=== PATIENT | female | born 1985 | race Hispanic/Latino ===

== ENCOUNTER 2017-06-04 16:33 | Inpatient (IN) | payer MEDICAID ==
--- NOTE | 2017-06-04 17:56 | OBHP ---
Datetime: 06/04/2017 17:45 Admit Comment, IP Provider: The patient presents to labor and delivery for administration of steroid s. Patient without complaints reports good movement no vaginal bleeding or leakage of fluid. Steroids to be administered as per M.D. Patient discharged with labor precautions Follow-up with in 1 week Pelvic Type - PN: Adequate Extremities - PN: Normal Abdomen - PN: Normal Back - PN: Normal Breast - PN: Not Done Lungs - PN: Normal Heart - PN: Normal Thyroid - PN: Normal Neurologic - PN: Normal HEENT - PN: Normal General - PN: Normal EGA AdmitDate IP: 39.6 Vital Signs Provider: Reviewed IP Chief Complaint: Other Genitourinary Exam: Normal DTRs - PN: Normal
[2017-06-04 23:09] VITALS: BMI 25.1
--- NOTE | 2017-06-05 02:05 | OBADHP ---
Datetime: 06/05/2017 01:00 EGA AdmitDate IP: 40.0 Datetime: 06/04/2017 23:00 Admit Comment, IP Provider: CHIEF COMPLAINT: CTX HISTORY OF PRESENT ILLNESS: 31 yo, female, , IUP @ 39.6 weeks by lmp. While being observed in the ED, she has progressed to active labor; from 1 cm to 3 cm within 2 itzel rs. 90% effacement and 0 station; PAST OB HX: N/A CARE and labs: GBS: neg ; ABO-Rh: O+ ; Ab: neg; HIV: neg; RPR: neg; GC/C: neg; Rubella: IM; HbsAg: NEG; PPD: ???; TDap: ??? PAST MEDICAL HISTORY: none PAST SURGICAL HISTORY: none PAST SOCIAL HISTORY: Denies: Smoking/Alcohol/Drugs PAST FAMILY HISTORY: inSignificant ALLERGIES: NKDA PHYSICAL EXAM Vital signs 107/66 82 General: pleasant, in no acute distress HEENT: normocephalic, PERRLA; AAOx3 Heart: no murmurs, regular rate and rhythm, S1, S2 normal. Lungs: clear to auscultation bilaterally, no wheezing Abdomen: gravid CVA: negative LOWER EXTREMITIES: negative for edema PELVIC: External Genitalia: negative for lesion Vagina: negative for VG Cervix: Dilation: 3/Efface ment: 90/Station:0 MONITOR Baseline Heart Rate: 150 Accelerations: 15X15 Deceleration: none Contractions every 3-5 min Category I ASSESSMENT: Intrauterine at GA 39.6 weeks. active phase of labor Ambulating PLAN: 31 yo GP IUP at 39.6 wks admitted for normal progression of labor Pt desires as natural as possible for delivery; does not want fluids (only if dehydrated or life s aving) Declines antibiotics; Pt on wireless, bluetooth monitor. Admit to Labor and Delivery, CBC/Type and Screen/RPR, Intravenous access, Monitoring, Monito r Labor progress, Discussion about her condition including labor, delivery, pain management, and post care. Adequate pelvis vertex presentation. olamide PGY1 The patient was seen with the resident I agree with note. Patient to be admitted adequate pelvis v ertex presentation estimated weight 7 pounds anticipate normal vaginal delivery Pelvic Type - PN: Adequate Extremities - PN: Normal Abdomen - PN: Normal Back - PN: Normal Breast - PN: Normal Lungs - PN: Normal Heart - PN: Normal Thyroid - PN: Normal Neurologic - PN: Normal HEENT - PN: Normal General - PN: Normal FHR - Baseline A Provider: 145 Vital Signs Provider: Reviewed; Within Normal Limits IP Chief Complaint: Uterine contractions; Suspected ruptured membranes NICHD Variability Prov Fetus A: Moderate 6-25bpm NICHD Accel Fetus A IP Provider: 15X15 FHR Category Provider Fetus A: Category I NICHD Decel Fetus A IP Provider: None Dilatation, Provider: 3 Effacement, Provider: 90 Station, Provider: 0 Genitourinary Exam: Normal DTRs - PN: Normal IP Adm Impression: Term, intrauterine IP Admit Plan: Admit to unit
--- NOTE | 2017-06-05 02:08 | OBHP ---
Datetime: 06/05/2017 01:00 EGA AdmitDate IP: 40.0 Datetime: 06/04/2017 23:00 IP Adm Impression: Term, intrauterine IP Admit Plan: Admit to unit Admit Comment, IP Provider: CHIEF COMPLAINT: CTX HISTORY OF PRESENT ILLNESS: 31 yo, female, , IUP @ 39.6 weeks by lmp. While being observed in the ED, she has progressed to active labor; from 1 cm to 3 cm within 2 itzel rs. 90% effacement and 0 station; PAST OB HX: N/A CARE and labs: GBS: neg ; ABO-Rh: O+ ; Ab: neg; HIV: neg; RPR: neg; GC/C: neg; Rubella: IM; HbsAg: NEG; PPD: ???; TDap: ??? PAST MEDICAL HISTORY: none PAST SURGICAL HISTORY: none PAST SOCIAL HISTORY: Denies: Smoking/Alcohol/Drugs PAST FAMILY HISTORY: inSignificant ALLERGIES: NKDA PHYSICAL EXAM Vital signs 107/66 82 General: pleasant, in no acute distress HEENT: normocephalic, PERRLA; AAOx3 Heart: no murmurs, regular rate and rhythm, S1, S2 normal. Lungs: clear to auscultation bilaterally, no wheezing Abdomen: gravid CVA: negative LOWER EXTREMITIES: negative for edema PELVIC: External Genitalia: negative for lesion Vagina: negative for VG Cervix: Dilation: 3/Efface ment: 90/Station:0 MONITOR Baseline Heart Rate: 150 Accelerations: 15X15 Deceleration: none Contractions every 3-5 min Category I ASSESSMENT: Intrauterine at GA 39.6 weeks. active phase of labor Ambulating PLAN: 31 yo GP IUP at 39.6 wks admitted for normal progression of labor Pt desires as natural as possible for delivery; does not want fluids (only if dehydrated or life s aving) Declines antibiotics; Pt on wireless, bluetooth monitor. Admit to Labor and Delivery, CBC/Type and Screen/RPR, Intravenous access, Monitoring, Monito r Labor progress, Discussion about her condition including labor, delivery, pain management, and post care. Adequate pelvis vertex presentation. olamide PGY1 The patient was seen with the resident I agree with note. Patient to be admitted adequate pelvis v ertex presentation estimated weight 7 pounds anticipate normal vaginal delivery Pelvic Type - PN: Adequate Extremities - PN: Normal Abdomen - PN: Normal Back - PN: Normal Breast - PN: Normal Lungs - PN: Normal Heart - PN: Normal Thyroid - PN: Normal Neurologic - PN: Normal HEENT - PN: Normal General - PN: Normal FHR - Baseline A Provider: 145 Vital Signs Provider: Reviewed; Within Normal Limits IP Indication for Induction: Not Applicable IP Chief Complaint: Uterine contractions; Suspected ruptured membranes NICHD Variability Prov Fetus A: Moderate 6-25bpm NICHD Accel Fetus A IP Provider: 15X15 FHR Category Provider Fetus A: Category I NICHD Decel Fetus A IP Provider: None Dilatation, Provider: 3 Effacement, Provider: 90 Station, Provider: 0 Genitourinary Exam: Normal DTRs - PN: Normal
[2017-06-05 02:13] LABS: BASO % 0.2 % (0.0-2.0); EOS % 0.1 % (0.0-4.0); HEMATOCRIT 35.1 % (34.0-47.0); LYMPH # 1.3 K/uL (1.0-4.3); LYMPH % 9.5 % (20.0-40.0); MEAN CORPUSCULAR HEMOGLOBIN 29.1 pg (27.0-31.0); MEAN CORPUSCULAR HGB CONC 32.3 g/dL (33.0-37.0); MONO # 0.7 K/uL (0.0-0.8); NEUT # 12.1 K/uL (1.8-7.0); NEUT % 85.2 % (50.0-75.0); PLATELET COUNT 224 K/uL (130-400); RED CELL DISTRIBUTION WIDTH 13.6 % (11.5-14.5); WHITE BLOOD COUNT 14.2 K/uL (4.8-10.8)
[2017-06-05] MEDS: Lactated Ringer's 1,000 ML IV SCH ×4 (05:05→16:45)
[2017-06-05 05:24] VITALS: PULSE 79; RESP 18; O2SAT 100
[2017-06-05 05:34] LABS: BASOPHIL 1 % (0-2); NEUTROPHIL 84 % (42-75); TOTAL CELLS COUNTED 100
[2017-06-05] MEDS ORDERED: Fentanyl/Bupivacaine HCl 250 ML EPI ONE (06:04)
[2017-06-05] MEDS ORDERED: Lactated Ringer's 1,000 ML IV ONE (15:45)
[2017-06-05] MEDS ORDERED: Lidocaine 1% Inj (20ml) ONE (22:39)
[2017-06-05] MEDS ORDERED: Oxytocin 30 units/LR 500ML 30 U/500 ML BAG IV ONE (23:04)
[2017-06-06 07:39] LABS: HEMATOCRIT 31.6 % (34.0-47.0); MEAN CELL VOLUME 89.9 fl (81.0-99.0); MEAN CORPUSCULAR HEMOGLOBIN 29.6 pg (27.0-31.0); RED CELL DISTRIBUTION WIDTH 13.8 % (11.5-14.5); WHITE BLOOD COUNT 19.5 K/uL (4.8-10.8)
--- NOTE | 2017-06-06 08:30 | OBDS ---
DELIVERY PERSONNEL Delivery Doctor: Chad Kiser MD Anthropology And Archeology Instructor: Emily Angel RN Anesthesiologist: trice Resident: Dr. Bean MATERNAL INFORMATION Delivery Anesthesia: Epidural Medications in Delivery: 30 units Pitocin in 1000 ml lr Estimated Blood Loss (ml): 300 Placenta Cultured: No Maternal Complications: None Provider Comments: Repair of first degree anterolateral wall of vagina laceration with one 3-0 vicry l rapid. Over intact perineum, of live female infant at 22:59 PM, Weight 2790gm, 9/9 . Right Ante rior shoulder was delivered first after head delivered in a controlled manner followed by posterior a rm and body. Infant was bulb suctioned nasopharygeally and crying spontaneously. Umbilical cord was c ut. Skin to skin was done with mother. Placenta was delivered intact spontaneously. Repair was done a s above. EBL 300mL. Patient and baby remained stable. --- Thanh Bean, PGY-1 LABOR SUMMARY EDC: 06/05/2017 00:00 No. Babies in Womb: 1 Attempted: No Labor Anesthesia: Epidural LABOR INFORMATION Reason for Induction: Not Applicable Onset of Labor: 06/05/2017 16:50 Complete Dilatation: 06/05/2017 22:30 Oxytocin: Augmentation Group B Beta Strep: Negative Antibiotics # of Doses: 0 Steroids Given: None Reason Steroids Not Administered: Not Applicable MEMBRANES Membranes Rupture Method: Spontaneous Rupture of Membranes: 06/05/2017 16:50 Length of Rupture (hrs): 6.15 Amniotic Fluid Color: Clear Amniotic Fluid Amount: Moderate Amniotic Fluid Odor: Normal STAGES OF LABOR Stage 1 hrs: 5 Stage 1 min: 40 Stage 2 hrs: 0 Stage 2 min: 29 Stage 3 hrs: 0 Stage 3 min: 5 Total Time in Labor hrs: 6 Total Time in Labor min: 14 VAGINAL DELIVERY Episiotomy: None Laceration Extension: First Degree Laceration Type: Vaginal Laceration Repair: Yes Laceration Repair Note: left lateral vaginal wall repaired with 3-0vicryl Initial Vag Sponge Count: 5 Final Vag Sponge Count: 5 Initial Vag Sharps Count: 2 Final Vag Sharps Count: 2 Sponge Count Correct: Yes Sharps Count Correct: Yes BABY A INFORMATION Infant Delivery Date/Time: 06/05/2017 22:59 Method of Delivery: Vaginal Born in Route : No : N/A Forceps: N/A Vacuum Extraction: N/A Shoulder Dystocia : No SHOULDER DYSTOCIA BABY A Infant Delivery Date/Time: 06/05/2017 22:59 PRESENTATION/POSITION BABY A Presentation: Cephalic Cephalic Presentation: Vertex PLACENTA INFORMATION BABY A Placenta Delivery Time : 06/05/2017 23:04 Placenta Method of Delivery: Spontaneous Placenta Status: Delivered SCORES BABY A Heart Rate 1 min: >100 bpm Resp Effort 1 min: Good Cry Reflex Irritability 1 min: Cough or Sneeze or Pulls Away Muscle Tone 1 min: Active Motion Color 1 min: Body [place], Extremities Blue Resuscitation Effort 1 min: Tactile Stimulation SCORE 1 MIN: 9 Heart Rate 5 min: >100 bpm Resp Effort 5 min: Good Cry Reflex Irritability 5 min: Cough or Sneeze or Pulls Away Muscle Tone 5 min: Active Motion Color 5 min: Body [place], Extremities Blue SCORE 5 MIN: 9 INFORMATION BABY A Gestational Age at Delivery: 40.0 Gestational Status: Term Infant Outcome : Liveborn Condition : Stable Infant Sex: Female IDENTIFICATION/MEDS BABY A ID Band Number: [id number] ID Band Location: Left Leg; Left Arm Vitamin K Given : Deferred by Parents Erythromycin Given: Deferred by Parents WEIGHT/LENGTH BABY A Infant Birthweight (gms): 2790 Weight (lb): 6 Weight (oz): 2 CORD INFORMATION BABY A No. Cord Vessels: 3 Nuchal Cord : N/A Cord Blood Taken: Yes Infant Suction: None; Mouth
--- NOTE | 2017-06-06 12:25 | OBPPN ---
Datetime: 06/06/2017 06:44 PP Pain Prov: Within normal limits PP Nausea Prov: Denies PP Flatus Prov: No PP BM Prov: No PP Breasts Prov: Not Done PP Heart Prov: Normal PP Lungs Prov: Normal PP Abdomen/Uterus Prov: Normal PP Lochia Prov: Normal PP Vulva/Perineum Prov: Not Done PP CVA Tenderness Prov: Normal PP Extremities Prov: Normal PP C/S Incision Prov: Not Applicable PP Progress Prov: Normal PP Impression Prov: Normal progression PP Plan Prov: Continue present management PP Progress Note Prov: S: 31 yo s/p NVD on 06/05/17 at 22:59. Pt. is seen and examined at beds colleen this AM. No overnight events. Pt reports occasional abdominal pain. Pt is ambulating without any difficulties. Breast feeding baby. Tolerating PO diet. Lochia is similar to light menses in volume. V oiding freely, No Bowel movement or passing gas per rectum. Denies fever/chills, diarrhea, nausea/vom iting, chest pain, dyspnea, and dizziness. O: VS: stable GEN: NAD Cardio: S1S2, no M/G/R Resp: clear breath sounds b/l Abdomen: BS+, NT, Uterus is firm and at the level of the umbilicus. EXT: No edema, calves nontender NEURO/PSYCHI: AAOx3, no grossly focal deficit, preserved affect and mood. Assessment/Plan: 31 yo s/p NVD on 06/05/17 at 22:59:. Pt remains afebrile, tolerating pain, tolerating PO intake, doing well on PPD 1. OOB with caution SCDs for DVT prophylaxis, pt ambulating Ibuprofen 600mg for pain. Colace 100mg PO BID/Senokot 17.2 mg qHS for constipation Encourage and ambulating F/u CBC post-delivery: pending --- Thanh Bean, PGY-1 OB Hospitalist note: This pt was seen and examined by me. Agree with above note. JEAN CLAUDE CALZADA PP Procedures: None Vital Signs Provider PP: Reviewed; Within Normal Limits
[2017-06-07] MEDS ORDERED: Benzocaine/Menthol SPRAY ONE (00:54)
--- NOTE | 2017-06-07 10:23 | OBPPN ---
Datetime: 06/07/2017 06:22 PP Pain Prov: Within normal limits PP Nausea Prov: Denies PP Flatus Prov: Yes PP BM Prov: No PP Breasts Prov: Not Done PP Heart Prov: Normal PP Lungs Prov: Normal PP Abdomen/Uterus Prov: Normal PP Lochia Prov: Normal PP Vulva/Perineum Prov: Not Done PP CVA Tenderness Prov: Normal PP Extremities Prov: Normal PP C/S Incision Prov: Not Applicable PP Progress Prov: Normal PP Impression Prov: Normal progression PP Plan Prov: Discharge PP Progress Note Prov: S: 31 yo s/p NVD on 06/05/17 at 22:59. Pt. is seen and examined at beds colle[facility] this AM. No overnight events. Pt reports occasional pain, but well controlled with medication. Pt is ambulating without any difficulties. Breast feeding baby. Tolerating PO diet. Lochia is similar t o light menses in volume. Voiding freely, No Bowel movement, but passing gas per rectum. Denies fever /chills, diarrhea, nausea/vomiting, chest pain, dyspnea, and dizziness. O: VS: stable GEN: NAD Cardio: S1S2, no M/G/R Resp: clear breath sounds b/l Abdomen: BS+, NT, Uterus is firm and at the level of the umbilicus. EXT: No edema, calves nontender NEURO/PSYCHI: AAOx3, no grossly focal deficit, preserved affect and mood. Assessment/Plan: 31 yo s/p NVD on 06/05/17 at 22:59. Pt remains afebrile, tolerating pain, t olerating PO intake, doing well on PPD2. OOB with caution pt ambulating Ibuprofen 600mg for pain. Senokot 17.2 mg qHS for constipation Encourage and ambulating F/u CBC post-delivery: 10.4/31.6 tdap declined --- Thanh Bean, PGY-1 [facility]. On rounds this AM, I saw and examined this patinent. Agree with PGY1 note. MAHNDO IP PP Procedures: None Vital Signs Provider PP: Reviewed; Within Normal Limits
--- NOTE | 2017-06-07 10:23 | OBDCSUM ---
Datetime: 06/07/2017 06:23 Discharged to, Provider: Home Follow up at, Provider: ИВАН Disch Instr Activity: Normal activity Disch Instr Diet: Regular Discharge Instructions, Provider: Routine instructions given Discharge Diagnosis, Provider: Term Delivered Discharge Time: 06/07/2017 10:00 Follow up in weeks, Provider: 4-6 weeks Disch Referrals: None Contraception discussed, Prov: Yes Disch Activity Restrictions: No sexual activity; Nothing in vagina - [place], tampons, douche Discharge Comment, Provider: DOA: 06/04/2017 EGA: 39.6 Diagnosis: NVD Term PRisk factors: none summary of : 31 yo F L_D summary DOL: 06/05/2017 at 22:59 NVD NB: F : 9/9 Weight: 2790 g PP summary No serious complications during PP. Lochia= menses, mild pain, controlled with medications Rubella immune, Tdap ? (tdap: pt declined) Blood type: O+ CBC pp: [phone] Discharge Date: 06/07/17 Time 10:00 AM Discharge Instructions: -encourage -percocet/Ibuprofen for pain PRN -Senokot 17.2 mg qHS for constipation -Ambulate as tolerated -f/u NB visit and PP visit --- Thanh Bean, PGY-1 [facility]. On rounds this AM, I saw and examined this patinent. Agree with PGY1 note. MAHNDO Contraception after Delivery: Undecided
[2017-06-07 19:49] VITALS: BP 113/55; TEMP 98.1
== END 2017-06-07 12:53 | disposition home or self-care (01) | DRG 373 ==
LOC: H.EROB2 16:33 → H.L&D 23:05 → H.OB/GYN 06-06 02:00
PROVIDERS: ADMIT Obstetrics & Gynecology Gynecology; ATTEND Obstetrics & Gynecology Gynecology
PROC: 0HQ9XZZ Repair Perineum Skin, External Approach (ICD-10-PCS; principal; 2017-06-04)
PROC: 10E0XZZ Delivery of Products of Conception, External Approach (ICD-10-PCS; 2017-06-04)
PROC: 4A1HXCZ Monitoring of Products of Conception, Cardiac Rate, External Approach (ICD-10-PCS; 2017-06-04)
DX: O70.0 First degree perineal laceration during delivery (principal); Z37.0 Single live birth; Z3A.39 39 weeks gestation of pregnancy